=== PATIENT | female | born 1995 | race Caucasian/White ===

== ENCOUNTER 2016-06-13 21:58 | Emergency (ER) | payer OTHER ==
[~2016-06-13] VITALS: Ht 142.2 cm; Wt 77.3 kg
[~2016-06-13 21:58] MED LIST: AMIT10TA6 PO; FLUO20CA25 PO; GABA-500 PO; LEFL20TA18 PO; NORG1TAB79 PO
[2016-06-13 22:47] VITALS: BP 125/88; PULSE 97; RESP 16; O2SAT 96
[2016-06-13 23:44] LABS: Mean Corpuscular Hemoglobin 27.1 pg (27.0-35.0); Mean Corpuscular Volume 79.8 fL (81-100); NEUTROPHILS % (AUTO) 65.6 % (40-74); Platelet Count 347 bil/L (150-400)
[2016-06-13 23:45] LABS: BASOPHILS % (AUTO) 0.3 % (0-3); EOSINOPHILS % (AUTO) 1.9 % (0-5); MONOCYTES % (AUTO) 7.7 % (4-12)
[2016-06-13 23:57] LABS: APPEARANCE,URINE HAZY (CLEAR,HAZY); COLOR,URINE YELLOW (YELLOW); OCCULT BLOOD,URINE SMALL (NEGATIVE); PH,URINE 7.5 (5.0-8.0); UROBILINOGEN,URINE NORMAL (NORMAL)
[2016-06-14 00:18] LABS: Magnesium 1.8 mg/dL (1.6-2.6)
--- NOTE | 2016-06-14 01:12 | ED.REPORT ---
HPI-General Illness Date of Service Jun 14, 2016 ED Provider: Martha Lucia MD Patient is a 21 year old female with a history of migraine headaches, fibromyalgia, and rheumatoid arthritis who presents to the ED with a severe headache which began 4 days ago. Patient describes her headache as a "band around her head". Her headache is worse with loud sounds. Patient reports radiation of her pain down her spine to her bilateral flanks. She also reports suprapubic abdominal pain. She admits to associated weakness, dizziness, chills , nausea, and diarrhea but denies fever, hematuria, vomiting, or dysuria. Patient typically uses Tylenol for her migraines, which has not improved her symptoms today. Nursing Notes Stated Complaint: HEADACHES,DIZZY Chief Complaint: Female Abdominal Pain Nursing Notes Reviewed: Yes Allergies: Coded Allergies: amoxicillin (Verified Allergy, Intermediate, Rash, 12/25/15) etanercept (Verified Allergy, Intermediate, 06/13/16) gabapentin (Verified Adverse Reaction, Unknown, fast heart rate and makes her feel "high", 12/25/15) Scheduled Amitriptyline (Amitriptyline) 10 Mg Tablet 10 MG PO HS Fluoxetine (Fluoxetine) 20 Mg Capsule 20 MG PO DAILY Gabapentin (Gabapentin) 100 Mg Capsule 100 MG PO BID Leflunomide (Leflunomide) 20 Mg Tablet 20 MG PO DAILY Norgestimate-Ethinyl Estradiol (Tri-Linyah) 1 Each Tablet 1 TAB PO DAILY Scheduled PRN Butalbital/Acetamin/Caff 50-300-40 mg (Butalbital/Acetamin/Caff 50-300-40 mg) 1 Each Capsule 1 CAPSULE PO Q4H PRN PRN Headache General Time Seen by MD: 01:10 Chief Complaint Headache Hx Obtained From: Patient Arrived By: Walk-in Sudden in Onset?: No Onset Occurred: 4 days ago Symptom Duration: Since onset Location: : Head Quality: Painful Radiation: : Abdomen: Back Severity: Current: Severe Severity: Maximum: Severe Recent Healthcare: No recent doctor visit, No recent hospitalization Similar Sx Previous: Yes Past Medical History Past Medical History Hiatal hernia Hemorrhoids Migraine headaches Anxiety Rheumatoid arthritis - on leflunomide Reports: Asthma, GERD Past Surgical History Bilat eye surgery Smoking History Never Smoker Social History on line school Alcohol Use: Denies alcohol use Drug Use: Denies drug use Other Social History: Good social support, Lives with parents, Local resident Ambulatory Status Independent Review of Systems Full Review of Systems Constitutional: Reports: Chills, Weakness - generalized, Denies: Fever GI: Reports: Diarrhea, Nausea, Denies: Vomiting Female: Denies: Dysuria, Hematuria Neurologic: Reports: Dizziness, Headache Complete sys rev & neg: except as marked. Physical Exam Vital Signs Vital Signs Date Time Temp Pulse Resp B/P Pulse Ox O2 Delivery O2 Flow Rate FiO2 06/14/16 02:56 93 20 121/85 97 06/13/16 22:47 36.4 97 16 125/88 96 Initial VS: Reviewed Neck: Supple, Full range of motion Respiratory: Breath sounds normal, Clear to auscultation, No respiratory distress Cardiovascular: Regular rate & rhythm, Heart sounds normal Abdomen / GI: Soft, No guarding, No rebound Extremities: Vascular intact, Neuro intact, No swelling Skin: Warm, Dry, No cyanosis Psychiatric: Mood/affect normal, Behavior normal, Normal thought content General/Constitutional: Awake, Alert, No acute distress tender everywhere she is touched, but does not localize her discomfort Head / Eyes: Atraumatic, Normocephalic, PERRL Neurologic: Oriented X3, Speech NL, No motor deficits, No sensory deficits, CN II - XII intact Finger-nose is normal Hell-acosta normal Motor strength is 5/5 in all four extremities Interpretation & Diagnostics Lab Results Interpretation Result Diagram: 06/13/16 2337 06/13/16 2337 Test 06/13/16 23:30 06/13/16 23:37 Urine Color Yellow (YELLOW) Urine Appearance Hazy (CLEAR,HAZY) Urine pH 7.5 (5.0-8.0) Urine Specific [place] 1.015 (1.003-1.035) Urine Protein Negativemg/dL (NEG,TRACE) Urine Glucose (UA) Negativemg/dL (NEGATIVE) Urine Ketones Negativemg/dL (NEGATIVE) Urine Occult Blood Small (NEGATIVE) Urine Nitrite Negative (NEGATIVE) Urine Bilirubin Negative (NEGATIVE) Urine Urobilinogen Normalmg/dL (NORMAL) Urine Leukocyte Esterase Small (NEGATIVE) Urine RBC 0-2/hpf (0-2) Urine WBC 0-5/hpf (0-5) Urine Epithelial Cells Many/hpf (NONE-MOD) Urine Crystals None seen (NONE SEEN) Urine Bacteria Many/hpf (NONE-FEW) Urine Hyaline Casts None/lpf (NONE) Urine Granular Casts None seen (NONE SEEN) Urine Waxy Casts None seen (NONE SEEN) Urine Red Blood Cell Casts None seen (NONE SEEN) Urine White Blood Cell Casts None seen (NONE SEEN) Urine Mucus Present (None Seen) Urine Trichomonas None seen (NONE SEEN) Urine Yeast None (NONE SEEN) Urinalysis Comment None Urine Culture Reflexed Indicated Hold Urine Received (Received) White Blood Count 12.5th/mm3 (3.8-10.1) Red Blood Count 5.06mil/mm3 (3.90-5.20) Hemoglobin 13.7g/dL (12.0-15.6) Hematocrit 40.4% (35.0-46.0) Mean Corpuscular Volume 79.8fL (81-100) Mean Corpuscular Hemoglobin 27.1pg (27.0-35.0) Mean Corpuscular Hemoglobin Concent 33.9% (32.0-37.0) Red Cell Distribution Width 14.4% (12.3-15.4) Platelet Count 347bil/L (150-400) Neutrophils (%) (Auto) 65.6% (40-74) Lymphocytes (%) (Auto) 24.3% (14-46) Monocytes (%) (Auto) 7.7% (4-12) Eosinophils (%) (Auto) 1.9% (0-5) Basophils (%) (Auto) 0.3% (0-3) Band Neutrophils % 0% (1-5) Sodium Level 137mEq/L (134-144) Potassium Level 4.5mEq/L (3.5-5.2) Chloride Level 103mEq/L (97-108) Carbon Dioxide Level 21mmol/L (18-29) Blood Urea Nitrogen 12mg/dL (6-20) Creatinine 0.55mg/dL (0.57-1.00) Estimat Glomerular Filtration Rate 196mL/min (>59) Glucose Level 96mg/dL (60-99) Calcium Level 9.0mg/dL (8.5-10.1) Magnesium Level 1.8mg/dL (1.6-2.6) Total Bilirubin 0.2mg/dL (0.0-1.2) Aspartate Amino Transf (AST/SGOT) 14U/L (0-50) Alanine Aminotransferase (ALT/SGPT) 11U/L (0-32) Alkaline Phosphatase 78U/L (25-150) Total Protein 6.8g/dL (6.4-8.4) Albumin 4.0g/dL (3.4-5.0) Lipase 33U/L (13-60) Re-Eval/Medical Decision Med Decision/Clinical Course 21-year-old female with past medical history of fibromyalgia and rheumatoid arthritis here with headache and generalized pain all over including flanks radiating to her abdomen, urinary frequency. Differential diagnosis includes but is not limited to migraine headache versus tension headache versus drug- seeking behavior versus urinary tract infection versus pyelonephritis. CBC shows mild leukocytosis. CMP is normal. Urinalysis does not show any evidence of UTI. Patient's headache is not concerning for meningitis or subarachnoid bleed as it is similar to previous headaches, she has no nuchal rigidity, it was not sudden onset, and she has no focal neurologic deficits at this time. I do not feel she requires CT or LP to rule these out. She was given Compazine, Benadryl, fluids in the emergency department with relief of symptoms. She was discharged with Fioricet for pain. She is aware and amenable to discharge and has been given very strict return precautions. Source of Hx: Old records Time of Eval: 02:26 Patient Status: Condition improved Re-Evaluation/Progress Note: Rechecked the patient, who now appears more comfortable. No acute problem on labs. Patient understands and agrees with the plan to be discharged home. Discharge instructions and follow-up discussed. All questions were addressed. Return to the ED warnings given. Counseled Regarding: Diagnosis, Lab results, Need for follow-up, When/why to return to ED Discharge & Departure Primary Impression: Migraine Migraine type: unspecified Status migrainosus presence: without status migrainosus Intractability: not intractable Qualified Code: G43.909 - Migraine, unspecified, not intractable, without status migrainosus Disposition: Home Discharge Condition All VS Reviewed: Yes Condition: Stable Patient Instructions: Migraine Headache (ED) Additional Instructions: Your symptoms are most consistent with a migraine headache. Your labs tonight were normal. You have been prescribed Fioricet, use as needed for migraine headaches. Follow up with your doctor in the next week. Return to the emergency department if your experience worsening headache, vomiting, shortness of breath, chest pain, or any other concerning symptoms. Your blood pressure was elevated today in the emergency department. Please be sure to follow up with your primary care physician to have this rechecked, as you may require regular blood pressure medications for management. Referrals: Dilma Huang (PCP) Scribe Attestation Portions of this note were transcribed by Cammy Mercer. I, Dr. Lucia personally performed the history, physical exam and medical decision-making; I reviewed and confirmed the accuracy of the information in the transcribed note. Signed by: Belinda Tabares, 06/14/2016 0234 copies to: Dilma Huang Rebecca A MD Jun 14, 2016 01:12 Cammy Mercer Jun 14, 2016 01:26
[2016-06-14] MEDS ORDERED: Ondansetron 2 mg/mL 2 mL Inj IVPUSH ONE (01:25)
[2016-06-14] MEDS ORDERED: 0.9% Sodium Chloride 1,000 ML IV ONE (01:25)
[2016-06-14] MEDS ORDERED: ProchlorPERazine 5 mg/mL 2 mL Inj IVPUSH ONE (01:25)
[2016-06-14] MEDS ORDERED: BUTA1CAP37 PO (02:33)
[2016-06-14 02:56] VITALS: BP 121/85; PULSE 93; RESP 20; O2SAT 97
== END 2016-06-14 02:56 | disposition home or self-care (01) ==
LOC: SED 21:58
DX: G43.909 Migraine, unspecified, not intractable, without status migrainosus (principal); R10.30 Lower abdominal pain, unspecified; R53.1 Weakness; R42 Dizziness and giddiness; R19.7 Diarrhea, unspecified; J45.909 Unspecified asthma, uncomplicated; M06.9 Rheumatoid arthritis, unspecified; K21.9 Gastro-esophageal reflux disease without esophagitis; M79.7 Fibromyalgia; Z88.1 Allergy status to other antibiotic agents; Z88.8 Allergy status to other drugs, medicaments and biological substances
CPT/HCPCS: 36415; 80053; 81000; 81025; 83690; 83735; 85025; 87086; 87088; 96361; 96374; 96375; 99285; J0780; J1200; J1885; J2405; J7030

== ENCOUNTER 2016-07-14 21:22 | Emergency (ER) | payer OTHER ==
[~2016-07-14] VITALS: Ht 144.8 cm; Wt 65.9 kg
[~2016-07-14 21:22] MED LIST changes: +BUTA1CAP37 PO
[2016-07-14 21:38] VITALS: BP 137/98; PULSE 111; RESP 16; O2SAT 99
--- NOTE | 2016-07-14 23:33 | ED.REPORT ---
HPI-Abd Pain F Under 40 Date of Service Jul 14, 2016 ED Provider: John Melgar MD Esperanza Boykin is a pleasant 21-year-old woman who presents for scheduled hospital emergency department with the complaint of vaginal bleeding for the last 3 days, and new onset rectal bleeding today. She has the additional complaint of bilateral breast pain and tenderness. She has a history of fibromyalgia, rheumatoid arthritis, PTSD, and anxiety with depression. She says she is gone through one pad today, 0 pads yesterday, one pad a day before, non-saturating, no cramps, denies trauma, says she may be constipated, however she is still passing gas. Tonight she said while on the commode she wiped and found blood on the tissue, described as dark and clumped. She states she has never had a hemorrhoid that she knows about. Currently she says she feels a little dizzy and shaky, has a headache, and had chills earlier, denies any nausea or vomiting, chest pain is related to her bilateral breast tenderness. Denies any breast discharge. Is currently on dual hormone control, she said she missed one dose yesterday because she was feeling ill. Nursing Notes Stated Complaint: BLEEDING FROM BUTT AND FRONT,BOOBS HURT Chief Complaint: Female Abdominal Pain Nursing Notes Reviewed: Yes Allergies: Coded Allergies: amoxicillin (Verified Allergy, Intermediate, Rash, 07/14/16) etanercept (Verified Allergy, Intermediate, 07/14/16) gabapentin (Verified Adverse Reaction, Unknown, fast heart rate and makes her feel "high", 07/14/16) Scheduled Amitriptyline (Amitriptyline) 10 Mg Tablet 10 MG PO HS Fluoxetine (Fluoxetine) 20 Mg Capsule 20 MG PO DAILY Gabapentin (Gabapentin) 100 Mg Capsule 100 MG PO BID Leflunomide (Leflunomide) 20 Mg Tablet 20 MG PO DAILY Norgestimate-Ethinyl Estradiol (Tri-Linyah) 1 Each Tablet 1 TAB PO DAILY Scheduled PRN Butalbital/Acetamin/Caff 50-300-40 mg (Butalbital/Acetamin/Caff 50-300-40 mg) 1 Each Capsule 1 CAPSULE PO Q4H PRN PRN Headache General Time Seen by MD: 23:18 Chief Complaint Vaginal bleeding Sudden in Onset?: Yes Similar Sx Previous: No Past Medical History Past Medical History Rheumatoid arthritis Migraines Fibromyalgia Depression and anxiety Asthma Arthritis GERD Reports: Asthma, GERD Past Surgical History Bilat eye surgery Smoking History Never Smoker Social History on line school Alcohol Use: Denies alcohol use Drug Use: Denies drug use Other Social History: Good social support, Lives with parents, Local resident Ambulatory Status Independent Review of Systems Complete sys rev & neg: except as marked. Physical Exam General: Laying in bed, mild distress accompanied by significant other. HEENT: Normocephalic, atraumatic, EOMI grossly, mucous membranes moist, conjunctiva pink, neck supple without lymphadenopathy. Cardiovascular: Regular rate and rhythm, no clicks murmurs rubs, peripheral pulses 2/4 equal bilaterally Pulmonary: Clear to auscultation bilaterally, no W/R/R. Abdominal: Soft palpation, decreased bowel sounds, diffuse tenderness, no rebound, negative Bell's. Extremities: No edema appreciated. No tenderness, asymmetry. Neuro: Neurologically grossly intact, strength is equal bilaterally upper and lower extremities. MSK: Gait is normal, able to move extremities on their own volition, strength 5 out of 5 equal bilaterally to upper and lower extremities. /GI: Vulva is atraumatic, no lesions, no obvious discharge, vaginal vault is without lesions, there is dark clotted blood in the posterior fornix, pauses closed, there is no leukorrhea, no foul smell, no cervical motion tenderness. Perianal area is without lesions, no hemorrhoids, no fissures, there is stool in the rectal vault, no palpable hemorrhoids or other abnormalities, sphincter tone is normal and symmetric. Initial Vital Signs Vital Signs (First) Date Time Temp Pulse Resp B/P Pulse Ox O2 Delivery O2 Flow Rate FiO2 07/14/16 21:38 37.0 111 16 137/98 99 Room Air Initial VS: Reviewed Interpretation & Diagnostics Lab Results Interpretation Result Diagram: 07/15/16 0110 Test 07/14/16 22:55 07/15/16 01:10 Hold Urine Received (Received) White Blood Count 9.1th/mm3 (3.8-10.1) Red Blood Count 4.96mil/mm3 (3.90-5.20) Hemoglobin 13.2g/dL (12.0-15.6) Hematocrit 38.6% (35.0-46.0) Mean Corpuscular Volume 77.8fL (81-100) Mean Corpuscular Hemoglobin 26.6pg (27.0-35.0) Mean Corpuscular Hemoglobin Concent 34.2% (32.0-37.0) Red Cell Distribution Width 14.6% (12.3-15.4) Platelet Count 337bil/L (150-400) Neutrophils (%) (Auto) 48.0% (40-74) Lymphocytes (%) (Auto) 38.8% (14-46) Monocytes (%) (Auto) 8.4% (4-12) Eosinophils (%) (Auto) 4.1% (0-5) Basophils (%) (Auto) 0.6% (0-3) Hold Amin Top Tube Received (Received) Re-Eval/Medical Decision Med Decision/Clinical Course Physical exam and laboratory analysis were not remarkable for any acute findings. She is not anemic, pelvic exam did not show active bleeding, rectal exam did not show any hemorrhoids or fissures, Hemoccult was negative. Patient said she missed 1 dose of her oral control yesterday, though she had bleeding since before then. Swabs were taken during pelvic exam to evaluate for infectious etiology, however specimens obtained were insufficient for laboratory analysis this was learned following exam. Patient was reassured that there were no acute findings, and was given instructions to follow-up with her primary care doctor with referral to [facility]EL[facility] if necessary. Patient was told she can return to the ER if there is significant bleeding, lightheadedness and dizziness, patient stated understanding and agreement to interpretation and follow-up plan. Counseled Regarding: Diagnosis, Lab results, Need for follow-up, When/why to return to ED Discharge & Departure Primary Impression: Dysfunctional uterine bleeding Discharge Condition All VS Reviewed: Yes Condition: Stable Patient Instructions: Dysfunctional Uterine Bleeding (DC) Additional Instructions: Thank you for entrusting us with your care Evaluation today did not show a cause for your recent vaginal bleeding. Evaluation did not show any blood in your rectum, nor any concerning disease processes. Blood work did not show that you have lost a substantial amount of blood, and your pelvic exam could not show that you are actively bleeding. We ran tests to look for infectious causes which could have caused bleeding, these may take up to a day to result, and you will be contacted with the results if any are positive. Please follow-up with your primary care doctors regarding vaginal bleeding, if it persists or gets worse you are welcome to return to the emergency department if you are unable to be evaluated by her primary care doctor or [facility]EL[facility]. Return to the ER if you experience any lightheadedness/dizziness feeling like you are going to pass out. She developed a fever, chills, or pelvic pain, please report to urgent care or the emergency department if necessary. Referrals: Dilma Huang (PCP) Attending Statment As attending of record for this patient, I conducted an independent history and physical exam, and I concur with the documentation per the resident note above, and as amended. copies to: Dilma Huang Noah M DO Jul 14, 2016 23:33 John Melgar MD Jul 15, 2016 07:03
[2016-07-15 01:24] LABS: BASOPHILS % (AUTO) 0.6 % (0-3); EOSINOPHILS % (AUTO) 4.1 % (0-5); MONOCYTES % (AUTO) 8.4 % (4-12); Mean Corpuscular Hemoglobin 26.6 pg (27.0-35.0); Mean Corpuscular Volume 77.8 fL (81-100); Platelet Count 337 bil/L (150-400)
[2016-07-15 01:56] VITALS: BP 134/97; RESP 16; O2SAT 98
== END 2016-07-15 01:54 | disposition home or self-care (01) ==
LOC: SED 21:22
DX: N93.8 Other specified abnormal uterine and vaginal bleeding (principal); N64.4 Mastodynia; J45.909 Unspecified asthma, uncomplicated; K21.9 Gastro-esophageal reflux disease without esophagitis; Z88.1 Allergy status to other antibiotic agents; Z88.8 Allergy status to other drugs, medicaments and biological substances

== ENCOUNTER 2016-09-03 18:31 | Emergency (ER) | payer OTHER ==
[~2016-09-03] VITALS: Ht 142.2 cm; Wt 81.8 kg
[2016-09-03 18:36] VITALS: BP 163/103; PULSE 105; RESP 20; O2SAT 99
--- NOTE | 2016-09-03 19:10 | DRSVH ---
PROCEDURE: X-RAY CHEST ONE VIEW, PORTABLE ([id number]) INDICATIONS: Chest pain TECHNIQUE: One view of the chest was acquired. COMPARISON: [facility], CR, XR CHEST 2VW, 07/29/2015, 18:38. FINDINGS: Surgical changes and devices: None. Lungs and pleura: No pleural effusions or pneumothorax. Lungs are clear. Mediastinum: Mediastinal contours appear normal. Heart size is normal. Bones and chest wall: No suspicious bony lesions. Overlying soft tissues appear unremarkable. IMPRESSION: 1. No acute cardiopulmonary disease. Dictated by: Ayaan Bates M.D. on 09/03/2016 at 19:08 Approved by: Ayaan Bates M.D. on 09/03/2016 at 19:09
[2016-09-03 19:35] LABS: BASOPHILS % (AUTO) 0.9 % (0-3); EOSINOPHILS % (AUTO) 4.4 % (0-5); MONOCYTES % (AUTO) 10.5 % (4-12); Mean Corpuscular Hemoglobin 27.7 pg (27.0-35.0); Mean Corpuscular Volume 83.4 fL (81-100); NEUTROPHILS % (AUTO) 40.5 % (40-74); Platelet Count 300 bil/L (150-400)
[2016-09-03 20:01] LABS: TROPONIN T < 0.010 ug/L (0.0-0.011)
--- NOTE | 2016-09-03 20:06 | ED.REPORT ---
HPI-General Illness Date of Service Sep 03, 2016 ED Provider: Christopher Del Real MD A 21 year old female with a history of arthritis, anxiety and fibromyalgia presents to the ED complaining of chest pain onset yesterday. The pt describes this as a waxing and waning "sharp pain with pressure" that results in left arm numbness and is exacerbated by breathing deeply. The pain is mostly present in the left side of her chest and is not exertional. The pt denies hematuria, hematochezia, cough or shortness of breath. She has taken Tylenol without relief. The pt experienced similar symptoms last year and was diagnosed with bronchitis. She denies recent surgery or long car rides. The pt has no personal or family history of cardiac disease but is taking control medications. Nursing Notes Stated Complaint: LEFT CHEST PAIN, LEFT ARM PAIN Chief Complaint: Chest Pain Nursing Notes Reviewed: Yes Allergies: Coded Allergies: amoxicillin (Verified Allergy, Intermediate, Rash, 07/14/16) etanercept (Verified Allergy, Intermediate, 07/14/16) gabapentin (Verified Adverse Reaction, Unknown, fast heart rate and makes her feel "high", 07/14/16) Scheduled Amitriptyline (Amitriptyline) 10 Mg Tablet 10 MG PO HS Fluoxetine (Fluoxetine) 20 Mg Capsule 20 MG PO DAILY Gabapentin (Gabapentin) 100 Mg Capsule 100 MG PO BID Leflunomide (Leflunomide) 20 Mg Tablet 20 MG PO DAILY Norgestimate-Ethinyl Estradiol (Tri-Linyah) 1 Each Tablet 1 TAB PO DAILY Scheduled PRN Butalbital/Acetamin/Caff 50-300-40 mg (Butalbital/Acetamin/Caff 50-300-40 mg) 1 Each Capsule 1 CAPSULE PO Q4H PRN PRN Headache General Time Seen by MD: 19:43 Chief Complaint Chest pain Hx Obtained From: Patient Arrived By: Walk-in Sudden in Onset?: No Onset Occurred: 1 day ago Symptom Duration: Waxes and wanes Recent Healthcare: Recent doctor visit Similar Sx Previous: No Past Medical History Past Medical History Rheumatoid arthritis Migraines Fibromyalgia Depression and anxiety Asthma Arthritis GERD Reports: Asthma, GERD Past Surgical History Bilat eye surgery Smoking History Never Smoker Social History on line school Alcohol Use: Denies alcohol use Drug Use: Denies drug use Other Social History: Good social support, Lives with parents, Local resident Ambulatory Status Independent Review of Systems Full Review of Systems Respiratory: Reports: Pleuritic pain, Denies: Non-productive cough, Shortness of breath Cardiovascular: Reports: Chest pain GI: Denies: Abdominal pain, Hematochezia Female: Denies: Hematuria Musculoskeletal: Denies: Back pain, Neck pain Skin: Denies Rash Neurologic: Reports: Numbness (left arm) Complete sys rev & neg: except as marked. Physical Exam Constitutional: Well-developed, well-nourished. Not diaphoretic. Head: Normocephalic and atraumatic. Mouth/Throat: Oropharynx is clear and moist. No oropharyngeal exudate. Eyes: EOM are normal. Pupils are equal, round, and reactive to light. Neck: Supple, no tracheal deviation. Cardiovascular: Normal rate, regular rhythm. Equal and intact distal pulses throughout. Pulmonary/Chest: Effort normal and breath sounds normal. No respiratory distress. Chest wall tender to palpation across chest. No ecchymosis or crepitus. Abdominal: Soft. No distension. There is no point tenderness to palpation, rebound, or guarding. Bowel sounds present. Musculoskeletal: Range of motion grossly intact, moving all extremities. No edema or tenderness appreciated. Neurological: AOx3. Grossly nonfocal exam. Strength and sensation intact and equal to bilateral upper and lower extremities. No pronator drift. Skin: Warm and dry, no rashes or pallor appreciated. Psychiatric: Appropriate mood and affect. Behavior appears normal. Vital Signs Vital Signs Date Time Temp Pulse Resp B/P Pulse Ox O2 Delivery O2 Flow Rate FiO2 09/03/16 20:26 36.2 96 20 143/99 100 Room Air 09/03/16 18:36 36.3 105 20 163/103 99 Initial VS: Reviewed Interpretation & Diagnostics Lab Results Interpretation Result Diagram: 09/03/16192709/03/161927 Test 09/03/16 19:28 09/03/16 19:50 White Blood Count 6.8th/mm3 (3.8-10.1) Red Blood Count 5.30mil/mm3 (3.90-5.20) Hemoglobin 14.7g/dL (12.0-15.6) Hematocrit 44.2% (35.0-46.0) Mean Corpuscular Volume 83.4fL (81-100) Mean Corpuscular Hemoglobin 27.7pg (27.0-35.0) Mean Corpuscular Hemoglobin Concent 33.3% (32.0-37.0) Red Cell Distribution Width 14.4% (12.3-15.4) Platelet Count 300bil/L (150-400) Neutrophils (%) (Auto) 40.5% (40-74) Lymphocytes (%) (Auto) 43.6% (14-46) Monocytes (%) (Auto) 10.5% (4-12) Eosinophils (%) (Auto) 4.4% (0-5) Basophils (%) (Auto) 0.9% (0-3) D-Dimer < 0.50mg/L FEU (<0.50) Sodium Level 138mEq/L (134-144) Potassium Level 3.8mEq/L (3.5-5.2) Chloride Level 103mEq/L (97-108) Carbon Dioxide Level 19mmol/L (18-29) Blood Urea Nitrogen 8mg/dL (6-20) Creatinine 0.65mg/dL (0.57-1.00) Estimat Glomerular Filtration Rate 162mL/min (>59) Glucose Level 99mg/dL (60-99) Calcium Level 9.4mg/dL (8.5-10.1) Magnesium Level 1.8mg/dL (1.6-2.6) Total Bilirubin 0.2mg/dL (0.0-1.2) Aspartate Amino Transf (AST/SGOT) 18U/L (0-50) Alanine Aminotransferase (ALT/SGPT) 17U/L (0-32) Alkaline Phosphatase 48U/L (25-150) Troponin T < 0.010ug/L (0.0-0.011) Total Protein 7.2g/dL (6.4-8.4) Albumin 4.2g/dL (3.4-5.0) Hold Purple Top Tube Received (Received) Hold Fork Top Tube Received (Received) ECG Interpretation ECG Interpretation: normal sinus rhythm with a rate of 98 Time: 19:53 Interpreted by: ED physician X-Ray Chest Interpretation Chest Xray Interpretation: IMPRESSION: 1. No acute cardiopulmonary disease. Dictated by: Ayaan Bates M.D. on 09/03/2016 at 19:08 Approved by: Ayaan Bates M.D. on 09/03/2016 at 19:09 Interpretation / Wet Read by: Interpret - Radiologist Re-Eval/Medical Decision Med Decision/Clinical Course In summary, 21-year-old female with a history of fibromyalgia presenting to the ED for evaluation of chest pain since yesterday. No red flag historical symptoms, no family history of early sudden cardiac , EKG without acute ischemic changes, troponin negative. Negative d-dimer. Clearly reproducible chest pain on examination that is consistent with her complaint. Given reassuring workup, improvement on reassessment, plan discharge with careful return precautions, PCP follow-up. Patient agreeable to the plan as stated, no further questions. Source of Hx: Old records Time of Eval: 21:25 Re-Evaluation/Progress Note: Pt rechecked, who is resting comfortably. The diagnosis and plan for discharge are discussed. The pt understands and agrees with the plan. All questions are addressed at this time. Counseled Regarding: Diagnosis, Lab results, Need for follow-up, When/why to return to ED Discharge & Departure Primary Impression: Chest pain Chest pain type: unspecified Qualified Code: R07.9 - Chest pain, unspecified Disposition: Home Discharge Condition All VS Reviewed: Yes Condition: Stable Patient Instructions: Chest Pain (ED) Additional Instructions: There does not appear to be a dangerous reason for your chest pain today. Your labs, EKG and chest x-ray were all reassuring. Take ibuprofen and Tylenol as directed for pain. Keep taking your normal medications as prescribed. Call your primary care physician in the morning to arrange a follow up appointment this week. Return to the emergency department if you develop any new or worsening symptoms. Referrals: Dilma Huang (PCP) Belinda Attestation Portions of this note were transcribed by Oswald Iverson. I, Dr. Del Real personally performed the history, physical exam and medical decision-making; I reviewed and confirmed the accuracy of the information in the transcribed note. Signed by: Belinda Flores, 09/03/16 and 2128. copies to: Dilma Huang William B MD Sep 03, 2016 20:06 OSWALD IVERSON Sep 03, 2016 20:18
[2016-09-03 20:11] LABS: Magnesium 1.8 mg/dL (1.6-2.6)
[2016-09-03 20:26] VITALS: BP 143/99; PULSE 96; RESP 20; O2SAT 100
== END 2016-09-03 21:35 | disposition home or self-care (01) ==
LOC: SED 18:31
DX: R07.9 Chest pain, unspecified (principal); R20.0 Anesthesia of skin; J45.909 Unspecified asthma, uncomplicated; M79.7 Fibromyalgia; K21.9 Gastro-esophageal reflux disease without esophagitis; F32.9 Major depressive disorder, single episode, unspecified; M06.9 Rheumatoid arthritis, unspecified; G43.909 Migraine, unspecified, not intractable, without status migrainosus; Z88.1 Allergy status to other antibiotic agents; Z88.8 Allergy status to other drugs, medicaments and biological substances

== ENCOUNTER → 2016-10-05 | Day surgery (SDC) | payer OTHER ==
[~2016-10-05] VITALS: Ht 142.2 cm; Wt 86.0 kg
[~2016-10-05] MED LIST changes: +0.9% Sodium Chloride 1,000 ML IV SCH; +CYCL10TA9 PO; +HC/M110O2 TP; +NAPR500T PO; +NORE1TAB57 PO; +Sodium Chloride LOK Flush 10 mL Syringe IV PRN; +TOCI162D SQ; +fentaNYL-PF 50 mCg/mL 2 mL Inj IVPUSH PRN
[2016-10-05 09:27] VITALS: BP 133/86; PULSE 95; RESP 20; O2SAT 97
[2016-10-05 10:15] VITALS: BP 105/42; PULSE 89; RESP 16; O2SAT 98
[2016-10-05 10:35] VITALS: BP 95/52; PULSE 78; RESP 16; O2SAT 99
--- NOTE | 2016-10-05 13:08 | ENDO ---
[address] [address] ENDOSCOPY PROCEDURE PATIENT: REEMA RICHARDS : 1995 MR#: [id number] ADMIT: 10/05/2016 JOB ID: [id number] DATE: 10/05/2016 TYPE OF OPERATION: Esophagogastroduodenoscopy with biopsy. PREOPERATIVE DIAGNOSIS(ES): 1. Epigastric pain. 2. Constipation. POSTOPERATIVE DIAGNOSIS(ES): Mild nonerosive gastritis. ANESTHESIA: 1. Fentanyl 100 mcg. 2. Versed 5 mg IV administered. COMPLICATION: None. ESTIMATED BLOOD LOSS: Minimal. DESCRIPTION OF PROCEDURE: After risks and benefits were explained to the patient, informed consent was obtained. After anesthesia administered, upper endoscope was then inserted into the mouth, intubated through esophagus, stomach, second portion of duodenum. Mucosa carefully examined. After procedure was done, the scope was withdrawn and the procedure terminated. FINDINGS: Upon inspection of the esophagus, the esophagus was normal without masses, ulcers or lesions. The Z-line located for 40 cm from the incisors. Upon entering the stomach, there is mild nonerosive gastritis that was seen. Retroflexion was normal. Duodenal bulb, first and second portion normal. Biopsies were taken of the duodenum, antrum, body and distal esophagus. IMPRESSION: Mild nonerosive gastritis. RECOMMENDATION: 1. Await pathology results. 2. Followup in GI clinic as needed.
--- NOTE | 2016-10-11 09:31 | PATH ---
SURGICAL PATHOLOGY Attending Physician:Dale Mack MD CASE STATUS: Signed Out PATIENT NAME: REEMA RICHARDS PID: [id number] : 1995 DATE COLLECTED:10/05/2016 16:34 SPECIMEN: 1: Duodenum, Biopsy 2: Stomach, Antrum, Biopsy 3: Gastric, Biopsy 4: Esophagus, Biopsy CLINICAL HISTORY: 1). DUODENUM BIOPSY 2). ANTRUM BIOPSY 3). GASTRIC BODY BIOPSY (RULE OUT H.PYLORI) 4). DISTAL ESOPHAGUS BIOPSY FINAL DIAGNOSIS: 1.DUODENUM BIOPSY: DUODENAL MUCOSA WITH NO DIAGNOSTIC ALTERATIONS. Negative for inflammation, sprue, dysplasia, and malignancy. 2.ANTRUM BIOPSY: ANTRAL MUCOSA WITH NO DIAGNOSTIC ALTERATIONS. Negative for intestinal metaplasia. Negative for dysplasia and malignancy. Immunohistochemical stains for Helicobacter pylori are pending, addendum to follow. 3.GASTRIC BODY BIOPSY: BODY-TYPE MUCOSA WITH NO DIAGNOSTIC ALTERATIONS. Negative for Helicobacter organisms. Negative for intestinal metaplasia. Negative for dysplasia and malignancy. 4.DISTAL ESOPHAGUS BIOPSY: SQUAMOUS MUCOSA WITH NO DIAGNOSTIC ALTERATIONS. Negative for intestinal/Wasserman' s metaplasia. Negative for dysplasia and malignancy. ICD10 R10.9 GROSS DESCRIPTION: Received four formalin-filled containers, each labeled with the patient' s name: 1. In a container labeled "duodenum", the specimen consists of two portions of tissue which aggregate to 0.4 x 0.2 x 0.2 cm. The specimen is entirely submitted in cassette 1A. 2. In a container labeled "antrum", the specimen consists of three tiny portions of tissue which aggregate to 0.2 x 0.2 x 0.2 cm. The specimen is entirely submitted in cassette 2A. 3. Two portions of tissue which aggregate to 0.2 x 0.2 x 0.2 cm. The specimen is entirely submitted in 3A. 4. In a container labeled "distal esophagus", the specimen consists of two portions of tissue which aggregate to 0.2 x 0.2 x 0.2 cm. The specimen is entirely submitted in cassette 4A. ([id number]) MICRO DESCRIPTION: See diagnosis. ICD-9 CODES: CPT CODES: 1: 64462 2: 65898, 67290 3: 82299 4: 22023 PROCEDURE/ADDENDA: Immunohistochemistry SPI Interpretation {Not Entered} Results-Comments This addendum is issued to report the results of immunohistochemical staining for Helicobacter pylori. The gastric mucosa (specimen 2) was stained with monoclonal antibody to Helicobacter pylori (SP48). Positive and negative controls stain appropriately. Result: The patient tissue shows no Helicobacter staining. Interpretation: The gastric mucosa is negative for Helicobacter pylori by immunohistochemical stains. This test was developed and its performance characteristics determined by [facility]. It has not been cleared or approved by the U. S. Food and Drug Administration. The FDA has determined that such clearance or approval is not necessary. This test is used for clinical purposes. It should not be regarded as investigational or for research. Electronically Signed Out Divya Sharma MD Electronically Signed Out Divya Sharma MD [facility] Pathology [facility] [address], [place] [address] Technical component performed at [facility], [facility] [address], [place], [address]
== END | disposition home or self-care (01) ==
LOC: EDSTATUS 09-14 14:45 → END 00:23 → EDSTATUS 09:15
PROVIDERS: ATTEND Internal Medicine Gastroenterology
DX: K29.70 Gastritis, unspecified, without bleeding (principal); R10.13 Epigastric pain; K59.00 Constipation, unspecified; K64.8 Other hemorrhoids; R68.81 Early satiety; K21.9 Gastro-esophageal reflux disease without esophagitis; M06.9 Rheumatoid arthritis, unspecified; M79.7 Fibromyalgia; K44.9 Diaphragmatic hernia without obstruction or gangrene; J45.909 Unspecified asthma, uncomplicated; F41.8 Other specified anxiety disorders; G89.4 Chronic pain syndrome; E66.01 Morbid (severe) obesity due to excess calories; Z68.41 Body mass index [BMI] 40.0-44.9, adult
CPT/HCPCS: 43239; 88305; 88342; 99152; J2250; J3010; J7030

== ENCOUNTER 2016-10-28 17:45 | Emergency (ER) | payer OTHER ==
[~2016-10-28] VITALS: Ht 142.2 cm; Wt 83.2 kg
[~2016-10-28 17:45] MED LIST changes: -0.9% Sodium Chloride 1,000 ML IV SCH; -NAPR500T PO; -NORG1TAB79 PO; -Sodium Chloride LOK Flush 10 mL Syringe IV PRN; -fentaNYL-PF 50 mCg/mL 2 mL Inj IVPUSH PRN
[2016-10-28 17:49] VITALS: BP 138/89; PULSE 106; RESP 16; O2SAT 99
--- NOTE | 2016-10-28 18:50 | ED.REPORT ---
HPI-Extremity Problem Lower Date of Service Oct 28, 2016 ED Provider: Fred Amaya MD Pt is a 21 y/o female w/ a hx of chronic pain, RA, and fibromyalgia presenting to the ED c/o bilateral lower extremity pain onset today. She denies arm pain or hip pain, extremity edema, recent trauma, CP, SOB, fever, nausea, vomiting, diarrhea. She has had an RA flare up previously and states this is not similar. Nursing Notes Stated Complaint: BILATERAL LEG/FOOT PAIN AND COLD Chief Complaint: Extremity Trauma Nursing Notes Reviewed: Yes Allergies: Coded Allergies: amoxicillin (Verified Allergy, Intermediate, Rash, 10/28/16) etanercept (Verified Allergy, Intermediate, 10/28/16) gabapentin (Verified Adverse Reaction, Unknown, fast heart rate and makes her feel "high", 10/28/16) Scheduled Amitriptyline (Amitriptyline) 10 Mg Tablet 10 MG PO HS Fluoxetine (Fluoxetine) 20 Mg Capsule 20 MG PO DAILY Leflunomide (Leflunomide) 20 Mg Tablet 20 MG PO DAILY Prednisone (PredniSONE) 20 Mg Tablet 40 MG PO DAILY Scheduled PRN Butalbital/Acetamin/Caff 50-300-40 mg (Butalbital/Acetamin/Caff 50-300-40 mg) 1 Each Capsule 1 CAPSULE PO Q4H PRN PRN Headache Cyclobenzaprine (Cyclobenzaprine) 10 Mg Tablet 10 MG PO TID PRN PRN Spasm Ibuprofen (Ibuprofen) 800 Mg Tablet 800 MG PO TID PRN PRN For Pain Miscellaneous Medications Hc/Mineral Oil/Petrolat,Wht (Hydrocortisone 1% Absorbase) 25 Gm Oint...g. 25 GM TP Norethindrone-Ethinyl Estrad (Necon) 1 Each Tablet 1 EACH PO Tocilizumab (Actemra) 162 Mg/0.9 Ml Syringe 162 MG SQ General Time Seen by MD: 18:49 Chief Complaint Other (bilat leg pain) Hx Obtained From: Patient Arrived By: Walk-in Onset Occurred: 9 - 12 hours ago Symptom Duration: Since onset Location: : Leg left: Leg right Quality: Painful Severity: Current: Moderate Severity: Maximum: Moderate Recent Healthcare: No recent doctor visit, No recent hospitalization Similar Sx Previous: No Past Medical History Past Medical History Chronic pain - see IAN Rheumatoid arthritis Migraines Fibromyalgia Depression and anxiety Asthma Arthritis GERD Reports: Asthma, GERD Past Surgical History Bilat eye surgery Smoking History Never Smoker Social History on line school Alcohol Use: Denies alcohol use Drug Use: Denies drug use Other Social History: Good social support, Lives with parents, Local resident Ambulatory Status Independent Review of Systems Constitutional: Denies: Chills, Fever Musculoskeletal: Reports: Extremity pain, Denies: Extremity swelling Complete sys rev & neg: except as marked. Respiratory: Denies: Shortness of breath Cardiovascular: Denies: Chest pain GI: Denies: Abdominal pain, Diarrhea, Nausea, Vomiting Physical Exam Initial Vital Signs Vital Signs (First) Date Time Temp Pulse Resp B/P Pulse Ox O2 Delivery O2 Flow Rate FiO2 10/28/16 17:49 36.7 106 16 138/89 99 Room Air Initial VS: Reviewed, Vital signs abnormal Head / Eyes: Atraumatic, Normocephalic, PERRL ENT: Mucous membranes moist, Conjunctiva normal, No scleral icterus Neck: Supple, Full range of motion Respiratory: Breath sounds normal, Clear to auscultation, No respiratory distress Cardiovascular: Regular rate & rhythm, Heart sounds normal, Intact distal pulses Abdomen / GI: Soft, Non-tender Upper Extremities: Vascular intact, Neuro intact, No swelling Skin: Warm, Dry, No cyanosis Neurologic: Alert, Oriented, Nonfocal Psychiatric: Mood/affect normal, Behavior normal, Normal thought content Lower Extremity / Pelvis / MS: Atraumatic, Inspection NL, Full range of motion , No swelling, Non-tender, No erythema, No deformity, Neurologic intact, Vascular intact, No ligamentous injury, Tendon function NL, No compartment syndrome, No edema Ankle / Foot: Atraumatic, Inspection NL, Full range of motion, No swelling, No erythema, Non-tender, No deformity, Neurologic intact, Vascular intact, No ligamentous injury, Tendon function NL, No edema General/Constitutional: Awake, Alert, No acute distress, Well appearing, Cooperative, Not toxic appearing Re-Eval/Medical Decision Med Decision/Clinical Course 21-year-old female history of rheumatoid arthritis and chronic pain, fibromyalgia presenting complaining of all of her joints hurting in her legs ankles and feet 1 day. Denies any fevers, nausea vomiting, recent diarrheal illnesses. On exam she is in no apparent distress. She has tenderness patient throughout all of her legs. There is no lower extremity swelling or palpable cords. There is no erythema or effusions. She is having acute exacerbation of her chronic pain. She was given Toradol and advised to take NSAIDs and given a 5 day steroid burst. Advised to follow up with her street sprinkler earlier this week. Return precautions given. Re-Evaluation/Progress : Time of Eval: 19:39 Re-Evaluation/Progress Note: F/U instructions and RTER warnings given. All questions addressed. Counseled Regarding: Diagnosis, Need for follow-up, When/why to return to ED Discharge & Departure Impression: Primary Impression: Arthritis Additional Impression: Chronic pain Chronic pain type: other chronic pain Qualified Code: G89.29 - Other chronic pain Disposition: Home Discharge Condition All VS Reviewed: Yes Condition: Stable Patient Instructions: Arthritis (ED) Additional Instructions: I suspect this is a flare up of arthritis. Your exam is reassuring. I recommend you take the steroids as prescribed. Return to the emergency department if you experience leg swelling, develop a rash, fever, shortness of breath, chest pain, or for other concerning symptoms. Follow-up with your primary care doctor in 2-3 days for a recheck. Referrals: Dilma Huang (PCP) Scribe Attestation Portions of this note were transcribed by Timmy Bonds. I, Dr. Amaya personally performed the history, physical exam and medical decision-making; I reviewed and confirmed the accuracy of the information in the transcribed note. copies to: Dilma Huang Ben M MD Oct 28, 2016 18:50 TIMMY BONDS Oct 28, 2016 19:42
[2016-10-28 19:06] VITALS: BP 133/89; PULSE 95; O2SAT 95
[2016-10-28] MEDS ORDERED: PRE20 PO (19:39)
[2016-10-28] MEDS ORDERED: IBUP800T28 PO (19:39)
[2016-10-28] MEDS ORDERED: predniSONE 20 mg Tablet PO ONE (19:45)
== END 2016-10-28 20:31 | disposition home or self-care (01) ==
LOC: SED 17:45
DX: M06.9 Rheumatoid arthritis, unspecified (principal); G89.29 Other chronic pain; M79.7 Fibromyalgia; J45.909 Unspecified asthma, uncomplicated; K21.9 Gastro-esophageal reflux disease without esophagitis; Z88.8 Allergy status to other drugs, medicaments and biological substances; Z88.1 Allergy status to other antibiotic agents
CPT/HCPCS: 96372; 99283; J1885

== ENCOUNTER → 2016-11-26 | Day surgery (SDC) | payer OTHER ==
[~2016-11-26] VITALS: Ht 143.5 cm; Wt 84.1 kg
[~2016-11-26] MED LIST changes: +ALBU18HF INHALATION; +FLUO10CA20 PO; -GABA-500 PO; +IBUP800T28 PO; +MethylprednisoLONE Sodium Succinate 40 mg/mL Inj IVPUSH PRN; +POLY17PO2 PO; +PRE20 PO; +SODIUM CHLORIDE 0.9% IV SCH; +TOCILIZUMAB IV SCH
[2016-11-26 12:50] VITALS: BP 129/84; PULSE 74; RESP 18; O2SAT 96
[2016-11-26 14:11] VITALS: BP 125/83; PULSE 85; RESP 18; O2SAT 98
[2016-11-26 14:30] VITALS: BP 121/78; PULSE 87; RESP 18; O2SAT 98
--- NOTE | 2016-11-26 15:07 | NUR ---
actemra infusion pt with hx of actemra injections; now starting infusions tolerated IV actemra without adverse s/s; vss throughout and post care notes provided; pt denies any questions or concerns to return in 4 weeks, appt card provided for 12/24 1300
== END | disposition home or self-care (01) ==
LOC: MOCO 12:23
PROVIDERS: ATTEND Internal Medicine Rheumatology
DX: M06.9 Rheumatoid arthritis, unspecified (principal)

== ENCOUNTER → 2016-12-25 | Day surgery (SDC) | payer OTHER ==
--- NOTE | 2016-12-24 16:32 | NUR ---
Okay for patient to receive ordered Acterma infusion: Received call from [facility] medical record transcriber from Dr. Caal's office. Patient reports upper respiratory symptoms, sore throat. She does not have a fever. Per Dr. Caal, it is okay for patient to receive her scheduled Acterma infusion tomorrow 12/25/16.
[~2016-12-25] VITALS: Ht 143.5 cm; Wt 84.1 kg
[~2016-12-25] MED LIST changes: +0.9% Sodium Chloride 100 ML IV ONE; -FLUO20CA25 PO; -HC/M110O2 TP; -MethylprednisoLONE Sodium Succinate 40 mg/mL Inj IVPUSH PRN; +MethylprednisoLONE Sodium Succinate 62.5 mg/mL 2 mL Inj IV PRN; -PRE20 PO; +SODIUM CHLORIDE 0.9% IV ONE; -SODIUM CHLORIDE 0.9% IV SCH; +Sodium Chloride LOK Flush 10 mL Syringe IVFLUSH PRN; -TOCI162D SQ; +TOCILIZUMAB IV ONE; -TOCILIZUMAB IV SCH
[2016-12-25 13:00] VITALS: BP 135/88; PULSE 105; RESP 18; O2SAT 98
[2016-12-25 14:01] VITALS: BP 134/83; PULSE 96; RESP 18; O2SAT 98
--- NOTE | 2016-12-25 14:48 | NUR ---
actemra infusion pt arrived accompanied by mother states she feels better today than yesterday; no cough or fever required IVT PIV start premedications given as ordered tolerated IV actemra without adverse s/s; vss throughout and post to return in 4 weeks
== END | disposition home or self-care (01) ==
LOC: MOCO 12:47
PROVIDERS: ATTEND Internal Medicine Rheumatology
DX: M06.9 Rheumatoid arthritis, unspecified (principal)
CPT/HCPCS: 96365; J3262